=== PATIENT | male | born 2005 | race Caucasian/White ===

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

== ENCOUNTER 2024-12-15 14:47 | Emergency (ER) | payer BC ==
--- NOTE | 2024-12-15 15:39 | ED ---
Nausea/Vomiting/Diarrhea HPI - General Source: patient, RN notes reviewed Mode of arrival: ambulatory Limitations: no limitations - History of Present Illness MD complaint: nausea, vomiting, diarrhea, abdominal pain <Carmen Sommer - Last Filed: 12/15/24 15:38> - General Source: patient, RN notes reviewed, old records reviewed <Roshan Mak - Last Filed: 12/15/24 23:59> - General Chief complaint: Nausea/Vomiting/Diarrhea Stated complaint: NVD Time Seen by Provider: 12/15/24 15:30 - History of Present Illness Initial comments: Quick Note: This is a 19-year-old male who presents to the emergency department for nausea, vomiting, diarrhea, and generalized abdominal pain. States that it started last night. 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 (Carmen Sommer) Patient is a 19-year-old male who presents emergency department for nausea, vomiting, diarrhea. Has been ongoing since yesterday. Also felt lightheaded. Concerned he may have a virus or some some other infection. Has a history of cholecystectomy. Denies chest pain, shortness of breath. Denies urinary complaints. Denies any blood in his vomit or stool. Presents for further evaluation at this time. Is not on any medications. 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 (Roshan Mak) - Related Data Previous Rx's Medication Instructions Recorded Acetaminophen Tab [Tylenol Tab] 1,000 mg PO Q6HR PRN #30 tablet 05/30/23 Ibuprofen [Motrin] 600 mg PO Q8HR PRN #30 tab 05/30/23 Simethicone [Gas-X] 125 mg PO AC-TID PRN #20 capsule 05/30/23 Allergies Allergy/AdvReac Type Severity Reaction Status Date / Time No Known Allergies Allergy Verified 12/15/24 15:21 Review of Systems ROS Other: All systems not noted in ROS Statement are negative. <Carmen Sommer - Last Filed: 12/15/24 15:38> ROS Other: All systems not noted in ROS Statement are negative. <Roshan Mak - Last Filed: 12/15/24 23:59> ROS Statement: Those systems with pertinent positive or pertinent negative responses have been documented in the HPI. Review of Systems: CONST: Denies fever EYES: Denies blurry vision ENT: Denies nasal congestion C/V: Denies Chest pain RESP: Denies shortness of breath GI: Endorses abdominal cramping : Denies dysuria SKIN: Denies rash. MSK: Denies joint pain. NEURO: Denies headache (Roshan Mak) Past Medical History Past Medical History: GERD/Reflux Additional Past Medical History / Comment(s): Gallbladder sediment, cEGD, olitis History of Any Multi-Drug Resistant Organisms: None Reported Additional Past Surgical History / Comment(s): EGD, colonoscopy Past Anesthesia/Blood Transfusion Reactions: No Reported Reaction Past Psychological History: No Psychological Hx Reported Smoking Status: Never smoker Past Alcohol Use History: None Reported Past Drug Use History: None Reported - Past Family History Mother Additional Family Medical History / Comment(s): PVCs Father Family Medical History: Hypertension <Carmen Sommer - Last Filed: 12/15/24 15:38> General Exam Limitations: no limitations <Carmen Sommer - Last Filed: 12/15/24 15:38> <Roshan Mak - Last Filed: 12/15/24 23:59> - General Exam Comments Initial Comments: Visual Physical Exam Vital signs reviewed General: Well-appearing, nontoxic, no acute distress. Head: Normocephalic, atraumatic Eyes: PERRLA, EOMI ENT: Airway patent Chest: Nonlabored breathing Skin: No visual rash, normal skin tone Neuro: Alert and oriented 3 Musculoskeletal: No gross abnormalities (Carmen Sommer) General: Appears in mild distress. HEAD: Normal with no signs of head trauma. EYES: PERRLA, EOMI, conjunctiva normal, no discharge. ENT: Hearing grossly intact, normal oropharynx. Dry mucous membranes. RESPIRATORY: Clear breath sounds bilaterally. No wheezes, rales, or rhonchi. C/V: Regular rate and rhythm. S1 and S2 auscultated, no edema, peripheral pulses 2+ and intact throughout ABD: Abd is soft, nontender, nondistended. No guarding or rebound tenderness. No peritoneal signs. EXT: Normal range of motion, no obvious deformity SKIN: No rashes or lesions observed on exposed skin. NEURO: Alert and oriented x 4. (Roshan Mak) Course Vital Signs 12/15/24 12/15/24 15:19 19:21 Temperature 99.6 F 99.1 F Pulse Rate 104 H 73 Respiratory 17 20 Rate Blood Pressure 122/78 127/81 O2 Sat by Pulse 98 100 Oximetry Medical Decision Making <Carmen Sommer - Last Filed: 12/15/24 15:38> - Lab Data Result diagrams: 12/15/24 16:55 12/15/24 16:55 <Roshan Mak - Last Filed: 12/15/24 23:59> - Medical Decision Making I performed the QuickNote portion of this chart. Signed Carmen Sommer PA-C. (Carmen Sommer) Was pt. sent in by a medical professional or institution ([facility], [employer], urgent care, hospital, or [facility]...) When possible be specific @ -No Did you speak to anyone other than the patient for history (EMS, parent, family, police, friend...)? What history was obtained from this source @ -No Did you review nursing and triage notes (agree or disagree)? Why? @ -I reviewed and agree with nursing and triage notes Were old charts reviewed (outside hosp., previous admission, EMS record, old EKG, old radiological studies, urgent care reports/EKG's, [facility] records)? Report findings @ -No old charts were reviewed Differential Diagnosis (chest pain, altered mental status, abdominal pain women, abdominal pain men, vaginal bleeding, weakness, fever, dyspnea, syncope, headache, dizziness, GI bleed, back pain, seizure, CVA, palpatations, mental health, musculoskeletal)? @ -COVID, flu, RSV, dehydration. This list is not all inclusive. EKG interpreted by me (3pts min.). @ -None done X-rays interpreted by me (1pt min.). @ -None done CT interpreted by me (1pt min.). @ -None done U/S interpreted by me (1pt. min.). @ -None done What testing was considered but not performed or refused? (CT, X-rays, U/S, labs)? Why? @ -None What meds were considered but not given or refused? Why? @ -None Did you discuss the management of the patient with other professionals (professionals i.e. , PA, [employer]LEY WORKER, lab, RT, psych nurse, professor of social work, office system analyst, teacher, chief privacy officer, classification case manager)? Give summary @ -No Was smoking cessation discussed for >3mins.? @ -No Was critical care preformed (if so, how long)? @ -No Were there social determinants of health that impacted care today? How? (Homelessness, low income, unemployed, alcoholism, drug addiction, transportation, low edu. Level, literacy, decrease access to med. care, long term, re hab)? @ -No Was there de-escalation of care discussed even if they declined (Discuss DNR or withdrawal of care, Hospice)? DNR status @ -No What co-morbidities impacted this encounter? (DM, HTN, Smoking, COPD, CAD, Cancer, CVA, ARF, Chemo, Hep., AIDS, mental health diagnosis, sleep apnea, morbid obesity)? @ -Cholecystectomy Was patient admitted / discharged? Hospital course, mention meds given and route, prescriptions, significant lab abnormalities, going to OR and other pertinent info. @ -Patient presents with GI symptoms of nausea, vomiting, diarrhea with abdominal cramping for 1 day. Multiple sick contacts. Discussed is likely related to infectious etiology. We will obtain abdominal labs, and symptomatically treat the patient with multiple fluid bolus, IV Zofran and Toradol. Patient was in agreement this plan. He will also receive IV Protonix. Vitals within acceptable limits. Laboratory studies returned within acceptable limits. Negative viral swabs. No I discussed results with patient. He is feeling improved. He would like to go home. I believe this is reasonable. Strict return precautions discussed. Discussed likely diagnosis is viral syndrome discussed proper hydration. I will provide the patient with a prescription for starter pack of Zofran ODT. I instructed the patient to follow up with their PCP in the next 1-3 days.. I explained that the patient should return to the emergency department if they experience any worsening symptoms. Strict return precautions were discussed with the patient. The patient expressed understanding of these instructions. I answered all questions that the patient had. The patient was discharged home in good condition with their prescriptions and follow up information. Undiagnosed new problem with uncertain prognosis? @ -No Drug Therapy requiring intensive monitoring for toxicity (Heparin, Nitro, Insulin, Cardizem)? @ -No Were any procedures done? @ -No Diagnosis/symptom? @ -Viral syndrome, nausea and vomiting, diarrhea, abdominal pain of unknown etiology Acute, or Chronic, or Acute on Chronic? @ -Acute Uncomplicated (without systemic symptoms) or Complicated (systemic symptoms)? @ -Uncomplicated Side effects of treatment? @ -No Exacerbation, Progression, or Severe Exacerbation? @ -No Poses a threat to life or bodily function? How? (Chest pain, USA, ID, pneumonia, PE, COPD, DKA, ARF, appy, cholecystitis, CVA, Diverticulitis, Homicidal, Suicidal, threat to staff... and all critical care pts) @ -Unlikely at this time (Roshan Mak) - Lab Data Lab Results 12/15/24 12/15/24 12/15/24 Range/Units 16:49 16:55 16:55 WBC 7.5 (4.0-11.0) k/uL RBC 5.42 (4.30-5.90) m/uL Hgb 16.4 (13.0-17.5) gm/dL Hct 48.2 (39.0-53.0) % MCV 88.9 (80.0-100.0) fL MCH 30.2 (25.0-35.0) pg MCHC 34.0 (31.0-37.0) g/dL RDW 12.1 (11.5-15.5) % Plt Count 240 (150-450) k/uL MPV 7.3 Neutrophils % 76 % Lymphocytes % 13 % Monocytes % 7 % Eosinophils % 1 % Basophils % 0 % Neutrophils # 5.7 (1.3-7.7) k/uL Lymphocytes # 1.0 (1.0-4.8) k/uL Monocytes # 0.6 (0-1.0) k/uL Eosinophils # 0.1 (0-0.7) k/uL Basophils # 0.0 (0-0.2) k/uL Sodium 135 L (137-145) mmol/L Potassium 3.5 (3.5-5.1) mmol/L Chloride 100 (98-107) mmol/L Carbon Dioxide 24 (22-30) mmol/L Anion Gap 11 mmol/L BUN 9 (9-20) mg/dL Creatinine 0.83 (0.66-1.25) mg/dL Est GFR (CKD-EPI)AfAm >90 (>60 ml/min/1.73 sqM) Est GFR (CKD-EPI)NonAf >90 (>60 ml/min/1.73 sqM) Glucose 92 (74-99) mg/dL Plasma Lactic Acid Teto (0.7-2.0) mmol/L Calcium 9.0 (8.4-10.2) mg/dL Magnesium 1.6 (1.6-2.3) mg/dL Total Bilirubin 2.6 H (0.2-1.3) mg/dL AST 28 (17-59) U/L ALT 39 (4-49) U/L Alkaline Phosphatase 73 (38-126) U/L Total Protein 6.9 (6.3-8.2) g/dL Albumin 4.4 (3.5-5.0) g/dL Amylase 49 (30-110) U/L Lipase 39 (23-300) U/L Influenza Type A (PCR) Not Detected (Not Detectd) Influenza Type B (PCR) Not Detected (Not Detectd) RSV (PCR) Not Detected (Not Detectd) SARS-CoV-2 (PCR) Not Detected (Not Detectd) Group A Strep (PCR) (Not Detectd) 12/15/24 12/15/24 Range/Units 16:55 16:55 WBC (4.0-11.0) k/uL RBC (4.30-5.90) m/uL Hgb (13.0-17.5) gm/dL Hct (39.0-53.0) % MCV (80.0-100.0) fL MCH (25.0-35.0) pg MCHC (31.0-37.0) g/dL RDW (11.5-15.5) % Plt Count (150-450) k/uL MPV Neutrophils % % Lymphocytes % % Monocytes % % Eosinophils % % Basophils % % Neutrophils # (1.3-7.7) k/uL Lymphocytes # (1.0-4.8) k/uL Monocytes # (0-1.0) k/uL Eosinophils # (0-0.7) k/uL Basophils # (0-0.2) k/uL Sodium (137-145) mmol/L Potassium (3.5-5.1) mmol/L Chloride (98-107) mmol/L Carbon Dioxide (22-30) mmol/L Anion Gap mmol/L BUN (9-20) mg/dL Creatinine (0.66-1.25) mg/dL Est GFR (CKD-EPI)AfAm (>60 ml/min/1.73 sqM) Est GFR (CKD-EPI)NonAf (>60 ml/min/1.73 sqM) Glucose (74-99) mg/dL Plasma Lactic Acid Teto 0.9 (0.7-2.0) mmol/L Calcium (8.4-10.2) mg/dL Magnesium (1.6-2.3) mg/dL Total Bilirubin (0.2-1.3) mg/dL AST (17-59) U/L ALT (4-49) U/L Alkaline Phosphatase (38-126) U/L Total Protein (6.3-8.2) g/dL Albumin (3.5-5.0) g/dL Amylase (30-110) U/L Lipase (23-300) U/L Influenza Type A (PCR) (Not Detectd) Influenza Type B (PCR) (Not Detectd) RSV (PCR) (Not Detectd) SARS-CoV-2 (PCR) (Not Detectd) Group A Strep (PCR) NOT DETECTED (Not Detectd) Disposition <Carmen Sommer - Last Filed: 12/15/24 15:38> Is patient prescribed a controlled substance at d/c from ED?: No Time of Disposition: 18:54 <Roshan Mak - Last Filed: 12/15/24 23:59> Clinical Impression: Abdominal pain, Nausea and vomiting, Viral syndrome Disposition: HOME SELF-CARE Condition: Good Instructions (If sedation given, give patient instructions): Acute Nausea and Vomiting (ED), Viral Syndrome (ED) Referrals: Hawk Valentin MD [Primary Care Provider] - 1-2 days
[2024-12-15] MEDS: SODIUM CHLORIDE 0.9% 1,000 ML IV SCH (16:56)
[2024-12-15] MEDS: KETOROLAC 15 MG/ML 1 ML VIAL IVP STA (17:04)
[2024-12-15] MEDS: ONDANSETRON 4 MG/2 ML VIAL IVP STA (17:05)
[2024-12-15] MEDS: PANTOPRAZOLE 40 MG/10 ML VIAL IVP STA (17:05)
[2024-12-15 17:11] LABS: Basophils % (A) 0 %; Eosinophils # (A) 0.1 k/uL (0-0.7); Eosinophils % (A) 1 %; HCT 48.2 % (39.0-53.0); HGB 16.4 gm/dL (13.0-17.5); Lymphocytes % (A) 13 %; MCH 30.2 pg (25.0-35.0); MCV 88.9 fL (80.0-100.0); Mean Platelet Volume 7.3; Monocytes # (A) 0.6 k/uL (0-1.0); Monocytes % (A) 7 %; Neutrophils # (A) 5.7 k/uL (1.3-7.7); Neutrophils % (A) 76 %; Platelet Count 240 k/uL (150-450); RBC 5.42 m/uL (4.30-5.90); RDW 12.1 % (11.5-15.5); WBC 7.5 k/uL (4.0-11.0)
[2024-12-15 17:26] LABS: ALT 39 U/L (4-49); AST 28 U/L (17-59); African American GFR (CKD) >90 (>60 ml/min/1.73 sqM); Albumin 4.4 g/dL (3.5-5.0); Alkaline Phosphatase 73 U/L (38-126); Amylase 49 U/L (30-110); Anion Gap 11 mmol/L; Blood Urea Nitrogen 9 mg/dL (9-20); Carbon Dioxide 24 mmol/L (22-30); Chloride 100 mmol/L (98-107); Glucose 92 mg/dL (74-99); Lipase 39 U/L (23-300); Magnesium 1.6 mg/dL (1.6-2.3); Non-African American GFR(CKD) >90 (>60 ml/min/1.73 sqM); Potassium 3.5 mmol/L (3.5-5.1); Sodium 135 mmol/L (137-145); Total Bilirubin 2.6 mg/dL (0.2-1.3); Total Protein 6.9 g/dL (6.3-8.2)
[2024-12-15 17:47] LABS: Influenza A Not Detected (Not Detectd); Influenza B Not Detected (Not Detectd); RSV Not Detected (Not Detectd)
[2024-12-15] MEDS: ONDANSETRON 4 MG ODT STARTER PACK 2 TAB BTL PO STA (19:17)
[2024-12-15 19:22] VITALS: BP 127/81; PULSE 73; RESP 20; TEMP 99.1
== END 2024-12-15 19:22 | disposition home or self-care (01) ==
LOC: EC 14:47
DX: B34.9 Viral infection, unspecified (principal); Z90.49 Acquired absence of other specified parts of digestive tract
CPT/HCPCS: 36415; 87651; 80053; 82150; 83605; 83690; 83735; 85025; 87636; 99284; 96374; 96375 ×2; 96361; J2405; J1885; S0119; J2470